=== PATIENT | female | born 1950 | race Caucasian/White ===

== ENCOUNTER 2017-08-06 08:30 | Observation (INO) | payer OTHER ==
[~2017-08-06] VITALS: Ht 160 cm; Wt 102.7 kg
[2017-08-06] VITALS (16 sets, daily range): BP systolic 90–153; BP diastolic 55–106; PULSE 79–104; TEMP 36.8–37.8; O2SAT 64–96; Ht 160 cm; Wt 102.7 kg
[~2017-08-06 08:30] MED LIST: ATRIN INH; DSY100 PO; HYDR-5688 PO; LVQ500 PO; MCRK20 PO; MGNO400 PO; NVLGIPEN SC; Ondansetron PO; PEDICHW50 PO; PRD20 PO; PRT40 PO; XNX5 PO; XPNIN INH
[2017-08-06] MEDS ORDERED: ESCI1TAB10 PO (09:07)
[2017-08-06] MEDS ORDERED: PRAV20TA PO (09:07)
[2017-08-06] MEDS ORDERED: VNTHFA/IN INH (09:07)
[2017-08-06] MEDS ORDERED: FURO-85 PO (09:10)
--- NOTE | 2017-08-06 09:31 | History and Physical ---
History & Physical Date of Service Aug 06, 2017. History & Physical 66-year-old female being evaluated for chronic obstructive pulmonary disease, shortness of breath and continuation of lung nodules. Patient has chronic scarring in her right upper and right lower lobe with previous history streptococcal viridans empyema in April 2015. Due the patient's increasing shortness of breath she has been referred for bronchoscopy with bronchial lavage for further evaluation. Active Problems 1. Acute bronchitis 2. Atelectasis 3. Chronic obstructive pulmonary disease 4. Cough 5. Empyema 6. Kidney disease 7. Loss of weight 8. PA (psoriatic arthritis) 9. Pleural effusion, right 10. Shortness of breath Surgical History 1. History of Appendectomy 2. History of Back Surgery 3. History of Hysterectomy 4. History of Oophorectomy 5. History of Sinus Surgery Family History 1. Family history of depression (Z81.8) 2. Family history of 3. Family history of cerebrovascular accident (CVA) (Z82.3) 4. Family history of Prostate disease 5. Family history of cerebrovascular accident (CVA) (Z82.3) Social History Former smoker Current Meds 1. PredniSONE 20 MG Oral Tablet; TAKE 3 TABLETS DAILY FOR 2 weeks, then 2.5 tablets 2. Ventolin HFA 108 (90 Base) MCG/ACT Inhalation Aerosol Solution; INHALE 2 PUFFS 3. ALPRAZolam 0.5 MG Oral Tablet; TAKE 1 TABLE2 TIMES DAILY; 4. ALPRAZolam 1 MG Oral Tablet; TAKE 1 TABLET AT BEDTIME; 5. Furosemide 20 MG Oral Tablet; TAKE 1 TABLET DAILY DIRECTED; 6. Lexapro 20 MG Oral Tablet; TAKE 1 TABLET DAILY; 7. Pravastatin Sodium 10 MG Oral Tablet; TAKE 1 TABLET DAILY DIRECTED; 8. PrednisoLONE Acetate 1 % Ophthalmic Suspension; INSTILL 1 DROP INTO BOTH 9. TraZODone HCl - 100 MG Oral Tablet; TAKE 1 TABLET AT BEDTIME; Allergies 1. Morphine Derivatives Immunizations Influenza --- Series1: 23-Apr-2016 PCV --- Series1: 15-Aug-2015 Vital Signs Recorded: 16Jul2017 01:52PM Patient Refused (Ht, wt, BP): patient didnt want weighed today Height: 5 ft Temperature: 97.9 F Respiration: 20 Heart Rate: 79 O2 Saturation: 96, RA Blood Pressure: 138 / 82, LUE, Sitting Physical Exam Constitutional General appearance: No acute distress, well appearing and well nourished. Eyes Conjunctiva and lids: No swelling, erythema or discharge. Pupils and irises: Equal, round and reactive to light. Ears, Nose, Mouth, and Throat External inspection of ears and nose: Normal. Otoscopic examination: Tympanic membranes translucent with normal light reflex. Canals patent without erythema. Oropharynx: Normal with no erythema, edema, exudate or lesions. Pulmonary Respiratory effort: No increased work of breathing or signs of respiratory distress. Auscultation of lungs: Clear to auscultation. Patient has good breath sounds bilaterally. There no wheeze, rale, or rhonchi noted. Cardiovascular Palpation of heart: Normal PMI, no thrills. Auscultation of heart: Normal rate and rhythm, normal S1 and S2, without murmurs. Examination of extremities for edema and/or varicosities: Normal. Abdomen Abdomen: Non-tender, no masses. Liver and spleen: No hepatomegaly or splenomegaly. Lymphatic Palpation of lymph nodes in neck: No lymphadenopathy. Musculoskeletal Gait and station: Normal. Digits and nails: Normal without clubbing or cyanosis. Inspection/palpation of joints, bones, and muscles: Normal. Skin Skin and subcutaneous tissue: Normal without rashes or lesions. Neurologic Cranial nerves: Cranial nerves 2-12 intact. Reflexes: 2+ and symmetric. Sensation: No sensory loss. Psychiatric Orientation to person, place, and time: Normal. Mood and affect: Normal.
--- NOTE | 2017-08-06 10:09 | History & Physical Bridge Note ---
H&P Re-Evaluation Bridge Note: I have examined the patient, reviewed the History & Physical and in the interval since the performance of the History & Physical I have noted the following changes of clinical significance: No changes noted
--- NOTE | 2017-08-06 10:10 | Pre Sedation Assessment ---
Pre Sedation Assessment General Date of Sedation: Aug 06, 2017. Vital Signs Past 12 Hours Date Time Temp Pulse Resp B/P (MAP) Pulse Ox O2 Delivery O2 Flow Rate FiO2 08/06/17 09:12 37.3 80 22 145/64 (91) 94 Room Air Review Cardiovascular: regular rate, rhythm, no edema, no gallop, no JVD, no murmur, normal peripheral pulses Lungs: chest non-tender, lungs clear, normal breath sounds, no respiratory distress, no accessory muscle use Pre-Sedation Airway Assessment Smoking Status: Former Smoker Hx of Sleep Apnea: No Hx of difficult intubation: No Short Thick Neck: Yes Thyro-mental Distance: < or =3 Finger Breadths Oral Cavity: WNL Mallampati Classification: Class III ASA Classification: Class II NPO Status Date of Last Intake of Fluids: Aug 06, 2017 Time of Last Intake of Fluids: 0630 Date of Last Intake of Solids: Aug 05, 2017 Time of Last Intake of Solids: 2100 Notes The planned sedation has been discussed with the patient. Informed Consent was obtained. I have identified the patient, determined the appropriateness of sedation and have assessed the patient immediately prior to the procedure. All medicine(s) and interventions are by my order.
[2017-08-06] MEDS ORDERED: NURSING VERBAL MED ORDER ONE (10:15)
[2017-08-06] MEDS ORDERED: DEXTROSE 5% 1000ML 1,000 ML IV SCH (10:30)
--- NOTE | 2017-08-06 10:54 | Bronchoscopy Procedure Note ---
Bronchoscopy Procedure Note Procedure: Bronchoscopy, conscious sedation, BAlL (RML & RUL) Consent: Obtained through the patient placed into the chart Pre-procedural diagnosis: Dyspnea Post-procedural diagnosis: Dyspnea Start time: 1015 End time: 1035 Total time: 20minutes Analgesia: 2% liquid lidocaine: Via nebulizer 4% gel lidocaine: Via right naris 2% liquid lidocaine: Via bronchoscopy Sedation: Versed IV: 3mg Fentanyl IV: 50g Procedure: The Melon #usemelon video bronchoscope was used for this procedure and passed down through the right naris Right naris/posterior naris/posterior oropharynx: Anatomically within normal limits, diffuse erythema Glottis: Anatomically within normal limits Vocal cords: Proper abduction and abduction, anatomically within normal limits Subglottis/trachea/Betina: Anatomically within normal limits Right bronchial tree: Right mainstem bronchus: Anatomically within normal limits Right upper lobe: Anatomically within normal limits Bronchus intermedius: Anatomically within normal limits Right middle lobe: Anatomically within normal limits Right lower lobe: Anatomically within normal limits Findings: No significant findings noted Left bronchial tree: Left mainstem bronchus: Anatomically within normal limits Left upper lobe: Anatomically within normal limits Lingula: Anatomically within normal limits Left lower lobe: Anatomically within normal limits Findings: No significant findings noted Bronchial alveolar lavage: RUL & RLL EBL: none Complications: Stridor with hypoxemia Follow-up: ASU
[2017-08-06] MEDS ORDERED: RACEPINEPHRINE 2.25% NEBU SOLN 0.5 ML VIAL INH ONE (11:55)
[2017-08-06] MEDS ORDERED: FENTANYL CITRATE INJ 50 MCG/1 ML 2 ML VIAL IV ONE (11:55)
[2017-08-06] MEDS ORDERED: LEVALBUTEROL 1.25MG/3ML NEB INH ONE (11:55)
[2017-08-06] MEDS ORDERED: MIDAZOLAM HCL 5 MG/ML 1 ML VIAL IV ONE (11:55)
[2017-08-06] MEDS ORDERED: LIDOCAINE HCL 2% LOCAL 50ML VIAL INSTIL ONE (11:55)
[2017-08-06] MEDS ORDERED: LIDOCAINE 4% INH SOLN 4 ML BTL INH ONE (11:55)
--- NOTE | 2017-08-06 12:19 | DIAGNOSTIC IMAGING REPORT ---
SINGLE VIEW CHEST CLINICAL HISTORY: Dyspnea. Status post bronchoscopy. FINDINGS: An AP, portable, upright chest radiograph is compared to study dated 08/13/2016. Correlation is made with chest CT dated 06/04/2017. The examination is degraded by portable technique and patient rotation. The heart is enlarged and there is atherosclerotic calcification of the thoracic aorta. The pulmonary vasculature is noncongested. Emphysema and chronic interstitial thickening are similar to previous. Findings suggest previous right-sided pulmonary resection. Opacities are also seen at the right apex. Consolidative change and pleural thickening is again seen at the right lung base. No large pleural effusion or pneumothorax is seen. The skeletal structures are osteopenic. There are healed bilateral rib fractures. IMPRESSION: 1. Cardiomegaly and emphysema. 2. Consolidative change is identified at the right lung base. 3. The left lung appears clear. 4. No pneumothorax is identified post procedure. Electronically signed by: Marcus Lund M.D. 08/06/2017 12:18 PM Dictated Date/Time: 08/06/2017 12:15 PM
--- NOTE | 2017-08-06 13:49 | Discharge Instructions ---
Discharge Instructions Date of Service Aug 06, 2017. Admission Reason for Admission: Pulmonary Nodule Discharge Discharge Diagnosis / Problem: Dyspnea Discharge Goals Goal(s): Diagnostic testing Activity Recommendations Activity Limitations: resume your previous activity . Instructions / Follow-Up Instructions / Follow-Up Follow-up in the [facility] Current Hospital Diet Patient's current hospital diet: Discharge Diet Recommended Diet: Regular Diet Procedures Procedures Performed: BRONCHOSCOPY bronchial lavage of the right upper lobe and right lower lobe Pending Studies Studies pending at discharge: no Medical Emergencies . Who to Call and When: Medical Emergencies: If at any time you feel your situation is an emergency, please call 911 immediately. . Non-Emergent Contact Non-Emergency issues call your: Materials Inspector . . "Provider Documentation" section prepared by Abram Rubio. . VTE Core Measure Inpt VTE Proph given/why not?: Treatment not indicated
[2017-08-06] MEDS ORDERED: POLYETHYLENE (MIRALAX) 17 GM PACK PO PRN (19:30)
[2017-08-06] MEDS ORDERED: MoRPHine SULFATE 2 MG/ML CARP IV PRN (19:30)
[2017-08-06] MEDS ORDERED: ALPRAZOLAM 0.5 MG TAB PO PRN (19:30)
[2017-08-06] MEDS ORDERED: ALUMINUM/MAGNESIUM/SIMETH (MAALOX MAX) 30 ML UDC PO PRN (19:30)
[2017-08-06] MEDS ORDERED: MAGNESIUM HYDROXIDE SUSP 30 ML UDC PO PRN (19:30)
[2017-08-06] MEDS ORDERED: ONDANSETRON INJ 2 MG/ML 2 ML VIAL IV PRN (19:30)
[2017-08-06] MEDS ORDERED: IV FLUIDS COMPLETED PRN ×2 (19:30→20:15)
--- NOTE | 2017-08-06 19:38 | Pulmonary Consultation ---
History General Date of Service: Aug 06, 2017. Stated Complaint: Dyspnea HPI The patient is a 66 year old female who presents to with complaints of Pulmonary Nodule. The patient's primary care provider is Jordan Vasquez M.D.. 66-year-old female being evaluated for chronic obstructive pulmonary disease, shortness of breath and continuation of lung nodules. Patient has chronic scarring in her right upper and right lower lobe with previous history streptococcal viridans empyema in April 2015. Due the patient's increasing shortness of breath she has been referred for bronchoscopy with bronchial lavage for further evaluation. She underwent bronchoscopy earlier today and notable started to desaturate after the bronchoscopy. She required 15L to maintain her SaO2 >88% at one time. She was also noted to have strider. After receiving racemix epi-nebulized and Xopenex she slowly recovered but throughout the day she never returned to her previous/baseline SaO2. She noted progressive SUBRAMANIAN over the last 3-4 months with no help from steroids and anti- biotics. Prior to admission she was on 20mg prednisone TID. She has also noted increased lower extremity edema over this time. Her work-up prior to admission had a CXR (WNL), Troponin and EKG (WNL) and ABG with an A-a gradient of 62. At the time of admission the patient denied CP, pleurisy, productive cough or hemoptysis. Active Problems 1. Acute bronchitis 2. Atelectasis 3. 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 Cough 5. Empyema 6. Chronic Kidney disease (Cr: 1.6-2.0 with EGFR: 25%) 7. Loss of weight 8. PA (psoriatic arthritis) 9. Pleural effusion, right 10. Shortness of breath Surgical History 1. History of Appendectomy 2. History of Back Surgery 3. History of Hysterectomy 4. History of Oophorectomy 5. History of Sinus Surgery Family History 1. Family history of depression (Z81.8) 2. Family history of 3. Family history of cerebrovascular accident (CVA) (Z82.3) 4. Family history of Prostate disease 5. Family history of cerebrovascular accident (CVA) (Z82.3) Social History Former smoker Current Meds 1. PredniSONE 20 MG Oral Tablet; TAKE 3 TABLETS DAILY FOR 2 weeks, then 2.5 tablets 2. Ventolin HFA 108 (90 Base) MCG/ACT Inhalation Aerosol Solution; INHALE 2 PUFFS 3. ALPRAZolam 0.5 MG Oral Tablet; TAKE 1 TABLE2 TIMES DAILY; 4. ALPRAZolam 1 MG Oral Tablet; TAKE 1 TABLET AT BEDTIME; 5. Furosemide 20 MG Oral Tablet; TAKE 1 TABLET DAILY DIRECTED; 6. Lexapro 20 MG Oral Tablet; TAKE 1 TABLET DAILY; 7. Pravastatin Sodium 10 MG Oral Tablet; TAKE 1 TABLET DAILY DIRECTED; 8. PrednisoLONE Acetate 1 % Ophthalmic Suspension; INSTILL 1 DROP INTO BOTH 9. TraZODone HCl - 100 MG Oral Tablet; TAKE 1 TABLET AT BEDTIME; Allergies 1. Morphine Derivatives Immunizations Influenza --- Series1: 23-Apr-2016 PCV --- Series1: 15-Aug-2015 Historian: patient, family, EMS Review of Systems Constitutional: reports: as stated in HPI Eyes: reports: no symptoms ENT: reports: no symptoms Cardiovascular: reports: as stated in HPI Respiratory: reports: as stated in HPI Gastrointestinal: reports: no symptoms Genitourinary - Female: reports: no symptoms Musculoskeletal: reports: no symptoms Integumentary: reports: no symptoms Neurologic: reports: no symptoms Psychiatric: reports: no symptoms Endocrine: no symptoms Hematologic / Lymphatic: no symptoms Allergic / Immunologic: no symptoms Past Medical History Past Medical History: please refer to HPI Past Surgical History: please refer to HPI Social History Hx Tobacco Use In Past Year?: No (quit 18yrs) Smoking Status: Former Smoker Alcohol: no current use Drug Use: none Marital status: single Housing status: lives alone Occupational Status: retired History of MDRO History of MDRO: Yes Type of MDRO: MRSA Allergies Coded Allergies: No Known Allergies (Unverified , 08/06/17) Current Medications Reported Home Medications Medications Dose Route/Sig Max Daily Dose Days Date Category Lasix (Furosemide) 20 Mg Tab 1 Tab PO DAILY 90 08/06/17 Reported Ventolin Hfa (Albuterol) 200 Puffs/83388 Mcg Aers 2-4 Puffs INH Q6H 08/06/17 Reported Pravachol (Pravastatin Sodium) 20 Mg Tab 20 Mg PO 08/06/17 Reported Lexapro (Escitalopram Oxalate) 20 Mg Tab 20 Mg PO DAILY 08/06/17 Reported Prednisone 20 Mg Tab 20 Mg PO DAILY 04/28/15 Rx Trazodone HCl 100 Mg Tab 100 Mg PO HS 04/28/15 Rx Alprazolam 0.5 Mg Tab 1 Mg PO HS PRN 04/28/15 Rx Physical Physical Exam Vital Signs: Date Time Temp Pulse Resp B/P (MAP) Pulse Ox O2 Delivery O2 Flow Rate FiO2 08/06/17 18:46 Nasal Cannula 2.0 08/06/17 18:17 37.6 87 21 153/106 (122) 95 Nasal Cannula 2.0 08/06/17 17:43 37.8 82 26 132/71 95 Nasal Cannula 2 08/06/17 17:15 84 26 148/78 94 Nasal Cannula 2 08/06/17 16:50 86 26 133/75 90 Room Air 08/06/17 16:11 92 26 133/84 96 Nasal Cannula 2 08/06/17 15:37 37.2 80 22 144/78 94 Nasal Cannula 2 08/06/17 15:10 37.2 104 22 90/55 92 Nasal Cannula 2 08/06/17 14:37 37.2 79 22 124/71 92 Nasal Cannula 2 08/06/17 14:06 82 24 96/64 92 Nasal Cannula 2 08/06/17 13:38 37.1 86 24 106/64 92 Nasal Cannula 4 08/06/17 13:12 36.9 84 22 90/63 64 Nasal Cannula 4 08/06/17 12:45 85 26 100/71 94 Nasal Cannula 6 08/06/17 12:30 37.1 86 26 92/65 94 Nasal Cannula 6 08/06/17 12:20 36.5 82 18 97/68 92 Mask 6 08/06/17 12:10 83 18 94/56 90 Mask 6 08/06/17 12:00 36.5 84 18 150/97 90 Mask 6 08/06/17 11:50 81 22 104/74 90 Mask 6 08/06/17 11:40 84 22 100/64 90 Mask 6 08/06/17 11:30 79 20 92/66 88 Mask 6 08/06/17 11:20 36.5 88 21 102/61 88 Mask 6 08/06/17 11:10 87 21 102/61 88 Mask 6 08/06/17 11:00 94 22 102/72 87 Mask 10 08/06/17 10:55 93 20 99/69 88 Mask 10 08/06/17 10:50 36.7 96 21 121/73 90 Mask 8 08/06/17 10:45 87 22 156/89 90 Mask 15 08/06/17 10:40 98 25 195/98 83 Mask 15 08/06/17 10:35 80 22 102/84 90 Mask 6 08/06/17 10:30 78 22 133/84 93 Mask 6 08/06/17 10:26 Oxymask 08/06/17 10:25 82 26 117/76 97 Mask 6 08/06/17 10:20 77 25 122/73 96 Mask 6 08/06/17 10:15 74 23 144/75 97 Mask 6 08/06/17 10:07 75 24 130/91 96 Mask 6 08/06/17 09:12 37.3 80 22 145/64 (91) 94 Room Air General Appearance: NO APPARENT DISTRESS Head: NORMOCEPHALIC, ATRAUMATIC Eyes: PERRLA, NO DISCHARGE, EOMI, SCLERAE NORMAL ENT: NORMAL EAR EXAM, sinus erythema Neck: NORMAL RANGE OF MOTION, NO TENDERNESS, TRACHEA MIDLINE, NO STRIDOR Respiratory: rales, rhonchi Cardiovasular: REGULAR RATE/RHYTHM, NORMAL S1S2, NO M/G/R, NO MURMUR Abdomen: NON TENDER, NORMAL BOWEL SOUNDS, NO REBOUND, NO MASSES, NO GUARDING Genitourinary - Female: EXTERNAL GENITALIA NORMAL Back: NORMAL INSPECTION, NO MIDLINE TENDERNESS, NO CVA TENDERNESS Upper Extremities: NO EDEMA, NO DEFORMITY Lower Extremities: edema Edema: Bilateral LE (2+) Pulses: radial (R) (1+), radial (L) (1+), dorsalis pedis (R) (1+), dorsalis pedis (L) (1+) Neuro: ALERT, ORIENTED x 3, NORMAL MOTOR EXAM, NORMAL SENSATION, NORMAL CEREBELLAR EXAM, NORMAL SPEECH, NORMAL GAIT Reflexes: biceps (R) (2+), bicpes (L) (2+) Babinski Testing: right (downgoing), left (downgoing) Psychiatric: NORMAL AFFECT, NO SUICIDAL IDEATION Diagnostics Labs Results Past 24 Hours Test 08/06/17 00:00 08/06/17 08:51 08/06/17 15:46 08/06/17 15:47 Range/Units Bedside Glucose 100 70-90 mg/dl Troponin I < 0.015 0-0.045 ng/ml Arterial Blood pH 7.38 7.35-7.45 Arterial Blood Partial Pressure CO2 47 35-46 mmHg Arterial Blood Partial Pressure O2 72 80-95 mm/Hg Arterial Blood HCO3 27 19-24 mmol/L Arterial Blood Oxygen Saturation 94.1 90-95 % Arterial Blood Base Excess 1.5 -9-1.8 mEq/L Arterial Blood Gas Delivery 2 L Deshaun Test POS POS Microbiology Results 08/06/17 Fungal Smear, Received Pending 08/06/17 Fungal Culture, Received Pending 08/06/17 Acid Fast Stain, Received Pending 08/06/17 Mycobacterial Culture, Received Pending 08/06/17 Gram Stain, Received Pending 08/06/17 Bronchoalveolar Lavage Culture, Received Pending 08/06/17 Fungal Smear, Received Pending 08/06/17 Fungal Culture, Received Pending 08/06/17 Acid Fast Stain, Received Pending 08/06/17 Mycobacterial Culture, Received Pending 08/06/17 Gram Stain, Received Pending 08/06/17 Bronchoalveolar Lavage Culture, Received Pending Diagnostic Radiology no acute change EKG Interpretation: NORMAL EKG Impression Assessment and Plan 66 y/o female with acute on chronic dyspnea and hypoxemia 1) Hypoxemia: Patient with 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 At this time I suggest we continue her current steroid dosing and 20mg prednisone TID. I also suggest we continue to maintain her SaO2 between 88 -92% with supplemental oxygen. Finally, I have consulted Dr. Salomón Schuler from cardiology to evaluated the patient for a possible right heart catheterization and shunt fraction evaluation to r/o diastolic heart failure. Patient will require a Two Steep prior to d/c for home O2. 2) Insomnia: Patient with a long history requiring Trazodone and Alprazolam. Will Continue to Monitor
--- NOTE | 2017-08-06 19:49 | History and Physical ---
History & Physical Date & Time of Service: Aug 06, 2017 at 19:30 Chief Complaint: Dyspnea Primary Care Physician: Jordan Vasquez M.D. History of Present Illness Source: patient 66 y/o F Hx COPD, HPL, Depression/anxiety, distant Hx of empyema. The pt is undergoing a dyspnea workup. A bronchoscopy was completed and following the procedure she remained persistently hypoxic. There was no clear etiology and R sided HF is suspected. For this reason she was assigned to telemetry and will likely undergo a R heart cath AM. She denies any current CP, N/V, diaphoresis, fevers. Past Medical/Surgical History 1) COPD 2) History of Empyema 3) HPL 4) Insomnia 5) Depression/anxiety Family History Noncontributory Social History Smoking Status: Former Smoker Multi-Drug Resistant Organisms History of MDRO: Yes Type of MDRO: MRSA Allergies Coded Allergies: No Known Allergies (Unverified , 08/06/17) Home Medications Scheduled Albuterol Hfa (Ventolin Hfa), 2-4 PUFFS INH Q6H Escitalopram Oxalate (Lexapro), 20 MG PO DAILY Furosemide (Lasix), 1 TAB PO DAILY Prednisone (Prednisone), 20 MG PO DAILY Trazodone HCl (Trazodone HCl), 100 MG PO HS Scheduled PRN Alprazolam (Alprazolam), 1 MG PO HS PRN for Sleep Miscellaneous Medications Pravastatin (Pravachol ), 20 MG PO Review of Systems Constitutional: No fever, No chills, No sweats Eyes: No worsening of vision ENT: No hearing loss, No unusual epistaxis, No nasal symptoms Respiratory: + shortness of breath, + dyspnea on exertion, + dyspnea at rest, No cough, No sputum Cardiovascular: No chest pain, No orthopnea Abdomen: No pain, No nausea, No vomiting Musculoskeletal: No joint pain Genitourinary - Female: No dysuria, No urinary frequency Neurologic: No memory loss, No paralysis, No weakness Psychiatric: No depression symptoms Endocrine: No fatigue Hematologic / Lymphatic: No abnormal bleeding/bruising Integumentary: No rash Allergic / Immunologic: No environmental allergies Physical Exam Vital Signs Date Time Temp Pulse Resp B/P (MAP) Pulse Ox O2 Delivery O2 Flow Rate FiO2 08/06/17 18:46 Nasal Cannula 2.0 08/06/17 18:17 37.6 87 21 153/106 (122) 95 Nasal Cannula 2.0 08/06/17 17:43 37.8 82 26 132/71 95 Nasal Cannula 2 08/06/17 17:15 84 26 148/78 94 Nasal Cannula 2 08/06/17 16:50 86 26 133/75 90 Room Air 08/06/17 16:11 92 26 133/84 96 Nasal Cannula 2 08/06/17 15:37 37.2 80 22 144/78 94 Nasal Cannula 2 08/06/17 15:10 37.2 104 22 90/55 92 Nasal Cannula 2 08/06/17 14:37 37.2 79 22 124/71 92 Nasal Cannula 2 08/06/17 14:06 82 24 96/64 92 Nasal Cannula 2 08/06/17 13:38 37.1 86 24 106/64 92 Nasal Cannula 4 08/06/17 13:12 36.9 84 22 90/63 64 Nasal Cannula 4 08/06/17 12:45 85 26 100/71 94 Nasal Cannula 6 08/06/17 12:30 37.1 86 26 92/65 94 Nasal Cannula 6 08/06/17 12:20 36.5 82 18 97/68 92 Mask 6 08/06/17 12:10 83 18 94/56 90 Mask 6 08/06/17 12:00 36.5 84 18 150/97 90 Mask 6 08/06/17 11:50 81 22 104/74 90 Mask 6 08/06/17 11:40 84 22 100/64 90 Mask 6 08/06/17 11:30 79 20 92/66 88 Mask 6 08/06/17 11:20 36.5 88 21 102/61 88 Mask 6 08/06/17 11:10 87 21 102/61 88 Mask 6 08/06/17 11:00 94 22 102/72 87 Mask 10 08/06/17 10:55 93 20 99/69 88 Mask 10 08/06/17 10:50 36.7 96 21 121/73 90 Mask 8 08/06/17 10:45 87 22 156/89 90 Mask 15 08/06/17 10:40 98 25 195/98 83 Mask 15 08/06/17 10:35 80 22 102/84 90 Mask 6 08/06/17 10:30 78 22 133/84 93 Mask 6 08/06/17 10:26 Oxymask 08/06/17 10:25 82 26 117/76 97 Mask 6 08/06/17 10:20 77 25 122/73 96 Mask 6 08/06/17 10:15 74 23 144/75 97 Mask 6 08/06/17 10:07 75 24 130/91 96 Mask 6 08/06/17 09:12 37.3 80 22 145/64 (91) 94 Room Air General Appearance: + pertinent finding (Overweight, middle-aged female, no distress - breathing is labored) Head: normocephalic Eyes: normal inspection ENT: normal ENT inspection, pharynx normal Neck: supple, + pertinent finding (JVD exam is limited - no obvious distention is seen) Respiratory/Chest: chest non-tender, + pertinent finding (Poor b/l air movement - no air into R base) Cardiovascular: regular rate, rhythm, no edema, no gallop Abdomen/GI: normal bowel sounds, non tender, soft Back: normal inspection, no CVA tenderness Extremities/Musculoskelatal: normal inspection, no calf tenderness, normal capillary refill Neurologic/Psych: estimator and drafter II-XII nml as tested, no motor/sensory deficits, alert Skin: + pertinent finding (generally erythematous) Diagnostics Laboratory Results Results Past 24 Hours Test 08/06/17 00:00 08/06/17 08:51 08/06/17 15:46 08/06/17 15:47 Range/Units Bedside Glucose 100 70-90 mg/dl Troponin I < 0.015 0-0.045 ng/ml Arterial Blood pH 7.38 7.35-7.45 Arterial Blood Partial Pressure CO2 47 35-46 mmHg Arterial Blood Partial Pressure O2 72 80-95 mm/Hg Arterial Blood HCO3 27 19-24 mmol/L Arterial Blood Oxygen Saturation 94.1 90-95 % Arterial Blood Base Excess 1.5 -9-1.8 mEq/L Arterial Blood Gas Delivery 2 L Deshaun Test POS POS Microbiology Results 08/06/17 Fungal Smear, Received Pending 08/06/17 Fungal Culture, Received Pending 08/06/17 Acid Fast Stain, Received Pending 08/06/17 Mycobacterial Culture, Received Pending 08/06/17 Gram Stain, Received Pending 08/06/17 Bronchoalveolar Lavage Culture, Received Pending 08/06/17 Fungal Smear, Received Pending 08/06/17 Fungal Culture, Received Pending 08/06/17 Acid Fast Stain, Received Pending 08/06/17 Mycobacterial Culture, Received Pending 08/06/17 Gram Stain, Received Pending 08/06/17 Bronchoalveolar Lavage Culture, Received Pending Diagnostic Radiology CXR: 1. Cardiomegaly and emphysema. 2. Consolidative change is identified at the right lung base. 3. The left lung appears clear. 4. No pneumothorax is identified post procedure EKG NSR - no strain pattern Impression Assessment and Plan 66 y/o F Hx COPD, HPL, Depression/anxiety, distant Hx of empyema. The pt is undergoing a dyspnea workup. A bronchoscopy was completed and following the procedure she remained persistently hypoxic. There was no clear etiology and R sided HF is suspected. For this reason she was assigned to telemetry and will likely undergo a R heart cath AM. She denies any current CP, N/V, diaphoresis, fevers. 1) Persistent hypoxia - known COPD history - HF or pulm HTN suspected - pt is scheduled for R heart cath - will monitor overnight - NPO after midnight Nebulizers and 02 protocol provided - she is on chrnic steroids - taper will be left to discretion of pulmonary following cath. AM Lasix dose held. 2) HPL - cont Statin 3) Depression/anxiety - cont scheduled meds Full code - heparin prophylaxis - total time for this admit including review of labs, meds, imaging - discussion with pt and Grade Checker Level of Care Telemetry Advanced Directives Existing Living Will: Yes Existing Power of Floral Artist: Yes Resuscitation Status FULL RESUSCITATION VTE Prophylaxis VTE Risk Assessment Done? Y/N: Yes Risk Level: Moderate Given or contraindicated: Treatment not indicated
[2017-08-06] MEDS ORDERED: TRAZODONE HCL 100 MG TAB PO SCH (21:00)
[2017-08-06] MEDS ORDERED: PRAVASTATIN SOD 20 MG TAB PO SCH (21:00)
[2017-08-07 00:01] VITALS: O2SAT 92
[2017-08-07] MEDS ORDERED: NURSING VERBAL MED ORDER ONE (01:15)
[2017-08-07 03:51] VITALS: BP 135/76; PULSE 87; TEMP 36.8; O2SAT 93
[2017-08-07] MEDS: ACETAMINOPHEN 325 MG TAB PO PRN ×3 (03:56→16:46)
[2017-08-07 07:32] VITALS: BP 140/71; PULSE 78; TEMP 36.6; O2SAT 93
[2017-08-07] MEDS ORDERED: MIDAZOLAM HCL 1 MG/ML 2ML VIAL ONE (07:48)
[2017-08-07] MEDS ORDERED: FENTANYL CITRATE INJ 50 MCG/1 ML 2 ML VIAL ONE (07:48)
[2017-08-07] MEDS ORDERED: ESCITALOPRAM OXALATE 20 MG TAB PO SCH (09:00)
[2017-08-07] MEDS ORDERED: PRAVASTATIN SOD 20 MG TAB PO SCH (09:00)
--- NOTE | 2017-08-07 09:20 | Post Sedation Assessment ---
Post Sedation Assessment General Date of Sedation Aug 07, 2017. Vital Signs: Vital Signs Past 12 Hours Date Time Temp Pulse Resp B/P (MAP) Pulse Ox O2 Delivery O2 Flow Rate FiO2 08/07/17 07:32 36.6 78 16 140/71 (94) 93 Nasal Cannula 2.0 08/07/17 04:00 Nasal Cannula 2.0 08/07/17 03:51 36.8 87 18 135/76 (95) 93 Nasal Cannula 2.0 08/07/17 00:01 92 Nasal Cannula 2.0 08/06/17 23:50 36.8 88 19 136/85 (102) 93 Nasal Cannula 2.0 Post Procedure Recovery Score Activity: (2) Moves 4 extremities * Respiration: (2) Deep breath/cough Circulation: (2) +/-20% PreAnes Value Consciousness: (2) Fully Awake Oxygen Saturation: (2) > 92% On Room Air Post Anesthesia Score: 10 Discharge Sedation Level of Care: Fast Track Phase II Post Sedation Plan On clinical assessment, the patient appears to have tolerated the sedation without complications. Patient is recovering as anticipated. Patient will continue to be monitored by nursing and may be discharged when sedation discharge criteria are met per below protocol. Upon Completions of procedure and additional 15 minutes continue every 5 minute vital signs and the P.A.R. score; then discharge to a Phase I or Fast Track to Phase II per the following guidelines: * Discharge Patient to appropriate Phase II area if PAR is 8 or greater or return to pre- procedure baseline. The post - procedure orders will be as directed. * If PAR score is less than 8 or not return to pre-procedure baseline then patient will follow Phase I monitoring till PAR is reached for Phase II. The Phase I may be done in procedure room or may call to secure a Phase I area. * If naloxone or flumazenil are used for reversal, hold in Phase I for an additional 60 -120 minutes before discharge to Phase II. Please call the Sedation Physician to re-evaluate and complete post-note for discharge to Phase II area. Do NOT discharge from procedure sedation or Phase 1 until post- sedation evaluation note is complete by procedure /sedation MD Sedation Discharge Instructions to be given to the patient at discharge to home.
--- NOTE | 2017-08-07 09:20 | Pre Sedation Assessment ---
Pre Sedation Assessment General Date of Sedation: Aug 07, 2017. Vital Signs Past 12 Hours Date Time Temp Pulse Resp B/P (MAP) Pulse Ox O2 Delivery O2 Flow Rate FiO2 08/07/17 07:32 36.6 78 16 140/71 (94) 93 Nasal Cannula 2.0 08/07/17 04:00 Nasal Cannula 2.0 08/07/17 03:51 36.8 87 18 135/76 (95) 93 Nasal Cannula 2.0 08/07/17 00:01 92 Nasal Cannula 2.0 08/06/17 23:50 36.8 88 19 136/85 (102) 93 Nasal Cannula 2.0 Review Cardiovascular: regular rate, rhythm, no edema, no murmur, normal peripheral pulses Lungs: chest non-tender, lungs clear, + wheezing Pre-Sedation Airway Assessment Smoking Status: Former Smoker Hx of Sleep Apnea: No Hx of difficult intubation: No Short Thick Neck: Yes Thyro-mental Distance: < or =3 Finger Breadths Oral Cavity: WNL Mallampati Classification: Class III ASA Classification: Class III NPO Status Date of Last Intake of Fluids: Aug 06, 2017 Time of Last Intake of Fluids: 2029 Date of Last Intake of Solids: Aug 06, 2017 Time of Last Intake of Solids: 2029 Procedure Planning Contraindications for Sedation: None Current Medications Reviewed: Yes Notes The planned sedation has been discussed with the patient. Informed Consent was obtained. I have identified the patient, determined the appropriateness of sedation and have assessed the patient immediately prior to the procedure. All medicine(s) and interventions are by my order.
--- NOTE | 2017-08-07 09:36 | Cardiac Catheterization ---
Procedure Note Procedure Date Aug 07, 2017. Pre-Procedure Diagnosis Cardiothoracic Symptom AUC Score 7 Post-Procedure Diagnosis Cardiothoracic Finding Procedure(s) Performed Right Heart Cath Designated [employer] Prescription Clerk(s) Jason Estimated Blood Loss 5 Medication(s) Fentanyl, Versed, Lidocaine 1% Summary of Findings RA 13 RV 36/13 PA 34/19 (26) PCW 17 PaSat 54% AoSat 87% on RA (ABG 7.37/47/56) Merrill CO/CI 3.4/1.7 Themo CO/CI 5.5/2.7 RV 57% RA 53% IVC 56% SVC 49% Qp/Qs 0.9 Summary: 1. Mildly elevated left and right sided filling pressures. 2. Borderline pulmonary hypertension. 3. Preserved cardiac output 4. No hemodynamically significant right to left shunt. Hemodynamics Rest Ao: -- Final Ao: -- LV: -- Recommendations Medical therapy and/or Counseling Specimens None Radiation Exposure (mGy) 153 Contrast (mls) 0 Fluids (cc crystalloids) 0 Drains None Anesthesia Moderate Procedural Complication(s) None Disposition PCU ACC Data Cardiac Status Clinical evaluation leading to the procedure CAD Presntation: Sx unlikely to be ischemic Anginal Classification: No symptoms Heart Failure: Yes, NYHA Class: CCS III Cardiogenic Shock w/in 24Hrs: No Cardiac Arrest w/in 24Hrs: No Imaging studies past 6 months: Yes Stress studies past 6 months: No Closure Device Percutaneous Entry Location: Antecubital vein Closure Device: none - manual hold Recommendations: Medical therapy and/or Counseling Intraprocedure Events Significant Dissection: No Perforation: No
[2017-08-07 09:41] LABS: ISTAT CREATININE 1.7 mg/dl (0.6-1.3); ISTAT IONIZED CALCIUM 1.23 mmol/l (1.12-1.32); ISTAT POTASSIUM 3.5 mEq/L (3.3-5.0)
[2017-08-07 10:00] VITALS: BP 117/67; PULSE 69; TEMP 36.9; O2SAT 98
--- NOTE | 2017-08-07 11:17 | Pulmonology Progress Note ---
Pulmonary Progress Note Date of Service Aug 07, 2017. Attending Dr. Rubio Subjective 66-year-old female admitted with progressive dyspnea status post bronchoscopy. Patient notes she has had progressive dyspnea over the last 3-4 months associated with lower extremity edema but still denies chest pain, pleurisy or unintentional weight loss. Objective Patient currently doing well able sit up in bed showing no signs of respiratory insufficiency on 2 liters nasal cannula. Vital signs: Stable on 2 liters Respiratory: Rhonchi noted on the right with some mild expiratory wheezing Cardiac: S1-S2 distant heart sounds Extremities: 1+ pitting edema bilateral lower extremities Assessment & Plan 66-year-old female admitted with progressive dyspnea: 1. ACOS: Patient does have underlying chronic obstructive Respiratory disease with reversible component. She should continue on her current regimen and we will slowly titrate her prednisone as an outpatient. 2. Right heart catheterization: Patient had a right heart catheterization performed showing an elevated wedge pressure 17 with a trans diastolic pulmonary pressure of only 2. Also patient had a mildly decreased Qp/Qs, PaSat and AoSat. This study suggests the patient has underlying pulmonary hypertension from group 2 and group 3 pulmonary hypertension. This is both cardiac and pulmonary in origin. With this we need to be aggressive with her diastolic dysfunction as well as her underlying ACOS. 3. Hypoxia: Patient is to undergo 2 step and then be discharged home on oxygen support. Follow-up: Patient can follow up with myself and/or Darian Caldera within the next 7-10 days. Data Medications: Current Inpatient Medications Medications (Trade) Dose Ordered Sig/Derek Route Start Time Stop Time Status Last Admin Dose Admin Miscellaneous (Iv Fluids Completed) 1 ea PRN PRN N/A 08/06/17 19:30 08/06/18 19:29 Alprazolam (Xanax Tab) 1 mg HS PRN PO 08/06/17 19:30 09/05/17 19:29 08/06/17 22:28 1 MG Escitalopram Oxalate (Lexapro Tab) 20 mg DAILY PO 08/07/17 09:00 09/06/17 08:59 08/07/17 10:25 20 MG Prednisone (PredniSONE TAB) 20 mg DAILY PO 08/07/17 09:00 09/06/17 08:59 08/07/17 10:25 20 MG Trazodone HCl (Desyrel Tab) 100 mg HS PO 08/06/17 21:00 09/05/17 20:59 08/06/17 22:28 100 MG Acetaminophen (Tylenol Tab) 650 mg Q4H PRN PO 08/06/17 19:30 09/05/17 19:29 08/07/17 09:54 650 MG Al Hydrox/Mg Hydrox/Simethicone (Maalox Max Susp) 15 ml Q4H PRN PO 08/06/17 19:30 09/05/17 19:29 Magnesium Hydroxide (Milk Of Magnesia Susp) 30 ml Q12H PRN PO 08/06/17 19:30 09/05/17 19:29 Ondansetron HCl (Zofran Inj) 4 mg Q6H PRN IV 08/06/17 19:30 09/05/17 19:29 Morphine Sulfate (MoRPHine SULFATE INJ) 2 mg Q30M PRN IV 08/06/17 19:30 08/20/17 19:29 Polyethylene (Miralax Powder Packet) 17 gm DAILY PRN PO 08/06/17 19:30 09/05/17 19:29 Pravastatin Sodium (Pravachol Tab) 20 mg QAM PO 08/07/17 09:00 09/06/17 08:59 08/07/17 10:25 20 MG Vital Signs: Date Time Temp Pulse Resp B/P (MAP) Pulse Ox O2 Delivery O2 Flow Rate FiO2 08/07/17 10:00 36.9 69 17 117/67 (84) 98 Nasal Cannula 2.0 08/07/17 09:45 Nasal Cannula 2.0 08/07/17 09:30 85 16 136/88 (104) 94 Room Air 08/07/17 09:25 Room Air 08/07/17 09:20 Room Air 08/07/17 09:15 89 16 137/92 (107) 95 Room Air 08/07/17 07:32 36.6 78 16 140/71 (94) 93 Nasal Cannula 2.0 08/07/17 04:00 Nasal Cannula 2.0 08/07/17 03:51 36.8 87 18 135/76 (95) 93 Nasal Cannula 2.0 08/07/17 00:01 92 Nasal Cannula 2.0 08/06/17 23:50 36.8 88 19 136/85 (102) 93 Nasal Cannula 2.0 08/06/17 20:00 92 Nasal Cannula 2.0 08/06/17 18:46 Nasal Cannula 2.0 08/06/17 18:17 37.6 87 21 153/106 (122) 95 Nasal Cannula 2.0 08/06/17 17:43 37.8 82 26 132/71 95 Nasal Cannula 2 08/06/17 17:15 84 26 148/78 94 Nasal Cannula 2 08/06/17 16:50 86 26 133/75 90 Room Air 08/06/17 16:11 92 26 133/84 96 Nasal Cannula 2 08/06/17 15:37 37.2 80 22 144/78 94 Nasal Cannula 2 08/06/17 15:10 37.2 104 22 90/55 92 Nasal Cannula 2 08/06/17 14:37 37.2 79 22 124/71 92 Nasal Cannula 2 08/06/17 14:06 82 24 96/64 92 Nasal Cannula 2 08/06/17 13:38 37.1 86 24 106/64 92 Nasal Cannula 4 08/06/17 13:12 36.9 84 22 90/63 64 Nasal Cannula 4 08/06/17 12:45 85 26 100/71 94 Nasal Cannula 6 08/06/17 12:30 37.1 86 26 92/65 94 Nasal Cannula 6 08/06/17 12:20 36.5 82 18 97/68 92 Mask 6 08/06/17 12:10 83 18 94/56 90 Mask 6 08/06/17 12:00 36.5 84 18 150/97 90 Mask 6 08/06/17 11:50 81 22 104/74 90 Mask 6 08/06/17 11:40 84 22 100/64 90 Mask 6 08/06/17 11:30 79 20 92/66 88 Mask 6 08/06/17 11:20 36.5 88 21 102/61 88 Mask 6 08/06/17 11:10 87 21 102/61 88 Mask 6 Laboratory Results: Last 24 Hours Test 08/06/17 15:46 08/06/17 15:47 08/07/17 07:00 08/07/17 08:41 Troponin I < 0.015 ng/ml Arterial Blood pH 7.38 Arterial Blood Partial Pressure CO2 47 mmHg Arterial Blood Partial Pressure O2 72 mm/Hg Arterial Blood HCO3 27 mmol/L Arterial Blood Oxygen Saturation 94.1 % Arterial Blood Base Excess 1.5 mEq/L Arterial Blood Gas Delivery 2 L Deshaun Test POS Pro-B-Type Natriuretic Peptide 85 pg/ml Bedside Blood Gas pH (LAB) 7.35 Bedside Blood Gas pCO2 (LAB) 53 mmHg Bedside Blood Gas pO2 (LAB) < 32 mmHg Bedside Blood Gas HCO3 (LAB) 30 meq/L Bedside Blood Gas Total CO2 31 mEq/l Bedside Blood Gas Base Excess (LAB) 4.0 meq/L Bedside Blood Gas O2 Saturation 54.0 % Test 08/07/17 08:54 08/07/17 08:57 08/07/17 08:58 08/07/17 09:02 Bedside Hemoglobin 15.6 g/dl Bedside Hematocrit 46 % Bedside Sodium 143 mEq/L Bedside Potassium 3.5 mEq/L Bedside Chloride 104 mEq/L Bedside Total CO2 29 mEq/l Anion Gap 14.0 mmol/L Bedside Blood Urea Nitrogen 23 mg/dl Bedside Creatinine 1.7 mg/dl Bedside Glucose (other) 121 mg/dl Bedside Ionized Calcium (Noemí) 1.23 mmol/l Bedside Blood Gas pH (LAB) 7.37 7.38 7.33 Bedside Blood Gas pCO2 (LAB) 54 mmHg 53 mmHg 56 mmHg Bedside Blood Gas pO2 (LAB) < 32 mmHg < 32 mmHg < 32 mmHg Bedside Blood Gas HCO3 (LAB) 31 meq/L 31 meq/L 29 meq/L Bedside Blood Gas Total CO2 33 mEq/l 33 mEq/l 31 mEq/l Bedside Blood Gas Base Excess (LAB) 6.0 meq/L 6.0 meq/L 3.0 meq/L Bedside Blood Gas O2 Saturation 53.0 % 57.0 % 49.0 % Test 08/07/17 09:04 08/07/17 09:17 Bedside Blood Gas pH (LAB) 7.35 7.37 Bedside Blood Gas pCO2 (LAB) 52 mmHg 48 mmHg Bedside Blood Gas pO2 (LAB) < 32 mmHg 56 mmHg Bedside Blood Gas HCO3 (LAB) 29 meq/L 28 meq/L Bedside Blood Gas Total CO2 30 mEq/l 29 mEq/l Bedside Blood Gas Base Excess (LAB) 3.0 meq/L 2.0 meq/L Bedside Blood Gas O2 Saturation 56.0 % 87.0 %
[2017-08-07 12:06] VITALS: BP 114/63; PULSE 79; TEMP 36.7; O2SAT 97
--- NOTE | 2017-08-07 16:10 | Medical Student: [facility] ---
Med Student Progress Note Date of Service Aug 07, 2017. Subjective Pt evaluation today including: conversation w/ patient, physical exam PO Intake: Adquate Voiding: no voiding problems Ms. Zuniga is a 66-year-old female with a history of COPD, HLD, and insomnia who presents to [facility] for bronchoscopy to evaluate chronic dyspnea. Pt reports increasing SOB over the past few months. In addition to asthma, she has history of empyema that has left chronic "changes" in the lung. She is on prednisone and albuterol inhaler/neb at home. She reports that the bronchoscopy went well. She subsequently had a right heart catherization to evaluate for pulmonary HTN. Since the procedure, she has been hypoxic and requires 2L NC. She otherwise feels well and has no complaints. Review of Systems Constitutional: No fever, No chills Respiratory: + shortness of breath, No cough Cardiac: No chest pain, No edema Abdomen: No nausea, No diarrhea, No constipation Female : No dysuria Objective Vital Signs Date Time Temp Pulse Resp B/P (MAP) Pulse Ox O2 Delivery O2 Flow Rate FiO2 08/07/17 12:06 36.7 79 20 114/63 (80) 97 Nasal Cannula 2.0 08/07/17 12:02 Nasal Cannula 2.0 08/07/17 10:00 36.9 69 17 117/67 (84) 98 Nasal Cannula 2.0 08/07/17 09:45 Nasal Cannula 2.0 08/07/17 09:30 85 16 136/88 (104) 94 Room Air 08/07/17 09:25 Room Air 08/07/17 09:20 Room Air 08/07/17 09:15 89 16 137/92 (107) 95 Room Air 08/07/17 07:32 36.6 78 16 140/71 (94) 93 Nasal Cannula 2.0 08/07/17 04:00 Nasal Cannula 2.0 08/07/17 03:51 36.8 87 18 135/76 (95) 93 Nasal Cannula 2.0 08/07/17 00:01 92 Nasal Cannula 2.0 08/06/17 23:50 36.8 88 19 136/85 (102) 93 Nasal Cannula 2.0 08/06/17 20:00 92 Nasal Cannula 2.0 08/06/17 18:46 Nasal Cannula 2.0 08/06/17 18:17 37.6 87 21 153/106 (122) 95 Nasal Cannula 2.0 08/06/17 17:43 37.8 82 26 132/71 95 Nasal Cannula 2 08/06/17 17:15 84 26 148/78 94 Nasal Cannula 2 08/06/17 16:50 86 26 133/75 90 Room Air 08/06/17 16:11 92 26 133/84 96 Nasal Cannula 2 Physical Exam General Appearance: WD/WN, no apparent distress ENT: hearing grossly normal, TMs normal Respiratory/Chest: normal breath sounds, no respiratory distress Cardiovascular: regular rate, rhythm, no edema, no gallop, no murmur Abdomen: normal bowel sounds, non tender, soft Extremities: normal inspection, no pedal edema, no calf tenderness Laboratory Results Last 24 Hours Test 08/07/17 07:00 08/07/17 08:41 08/07/17 08:54 08/07/17 08:57 Pro-B-Type Natriuretic Peptide 85 pg/ml Bedside Blood Gas pH (LAB) 7.35 7.37 Bedside Blood Gas pCO2 (LAB) 53 mmHg 54 mmHg Bedside Blood Gas pO2 (LAB) < 32 mmHg < 32 mmHg Bedside Blood Gas HCO3 (LAB) 30 meq/L 31 meq/L Bedside Blood Gas Total CO2 31 mEq/l 33 mEq/l Bedside Blood Gas Base Excess (LAB) 4.0 meq/L 6.0 meq/L Bedside Blood Gas O2 Saturation 54.0 % 53.0 % Bedside Hemoglobin 15.6 g/dl Bedside Hematocrit 46 % Bedside Sodium 143 mEq/L Bedside Potassium 3.5 mEq/L Bedside Chloride 104 mEq/L Bedside Total CO2 29 mEq/l Anion Gap 14.0 mmol/L Bedside Blood Urea Nitrogen 23 mg/dl Bedside Creatinine 1.7 mg/dl Bedside Glucose (other) 121 mg/dl Bedside Ionized Calcium (Noemí) 1.23 mmol/l Test 08/07/17 08:58 08/07/17 09:02 08/07/17 09:04 08/07/17 09:17 Bedside Blood Gas pH (LAB) 7.38 7.33 7.35 7.37 Bedside Blood Gas pCO2 (LAB) 53 mmHg 56 mmHg 52 mmHg 48 mmHg Bedside Blood Gas pO2 (LAB) < 32 mmHg < 32 mmHg < 32 mmHg 56 mmHg Bedside Blood Gas HCO3 (LAB) 31 meq/L 29 meq/L 29 meq/L 28 meq/L Bedside Blood Gas Total CO2 33 mEq/l 31 mEq/l 30 mEq/l 29 mEq/l Bedside Blood Gas Base Excess (LAB) 6.0 meq/L 3.0 meq/L 3.0 meq/L 2.0 meq/L Bedside Blood Gas O2 Saturation 57.0 % 49.0 % 56.0 % 87.0 % Assessment and Plan Assessment and Plan: Ms. Zuniga is a 66-year-old female with a history of Asthma, HLD, and insomnia who presents to [facility] for evaluation of chronic dyspnea. DYSPNEA WORK UP Bronchoscopy - No clear pulmonary abnormalities revealed to explain chronic dyspnea. Right heart catheterization showing " Mildly elevated left and right sided filling pressures, Borderline pulmonary hypertension, Preserved cardiac output, No hemodynamically significant right to left shunt." Pulmonology reports that both the heart and lungs are contributing to pulmonary hypertension in the pt, and that we will need to be aggressive in treating diastolic dysfunction and asthma. Plan is to have her follow-up with pulmonology as an outpatient. Until then, continue supplemental oxygen at home. ASTHMA Continue albuterol. HDL Continue statin. INSOMNIA Continue alprazolam and trazodone. DVT PPX Continue heparin. Ambulate as tolerated. CP No chest pain today. DEPRESSION/ANXIETY Continue escitalopram.
[2017-08-07 16:48] VITALS: BP 114/63; PULSE 79; TEMP 36.7; O2SAT 97
--- NOTE | 2017-08-08 04:25 | CARDIOLOGY CONSULTATION ---
DATE OF CONSULTATION: 08/07/2017 CONSULTATION REQUESTED BY: Dr. Pozo REASON FOR CONSULTATION: Evaluation for possible pulmonary hypertension in the setting of persistent dyspnea plus hypoxemia. HISTORY OF PRESENT ILLNESS: Ms. Zuniga is a very pleasant 66-year-old woman with a history of a prior empyema in 2014, status post VATS, prior lung nodule, asthma/COPD overlap syndrome, morbid obesity, and chronic renal insufficiency who was admitted from the bronchoscopy suite in the setting of hypoxia. The patient is followed by the [facility] pulmonary group as an outpatient and has been worked up for worsening dyspnea on exertion over the last several months. Her workup has included unremarkable CT scan/VQ scan and an echocardiogram which showed preserved LV function, EF 55%, normal RV size and function and no significant valvular pathology and normal estimated RA and PA pressures. The patient was admitted yesterday after he underwent bronchoscopy for further evaluation of chronic dyspnea with post-procedure course complicated by persistent hypoxia. Since being admitted, patient states that her breathing has returned to her recent baseline. She denies any prior history of cardiac issues. Denies any chest pain, palpitations. Does endorse worsening lower extremity edema over the last several months and has been intermittently taking Lasix. PAST MEDICAL HISTORY: 1. Asthma/COPD overlap syndrome, FEV1 of 41%. 2. History of empyema growing alpha strep/strep Viridans back in 2014, status post VATS, prior lung nodule, benign per her biopsy with bronchoscopy in 2014. 3. Psoriatic arthritis. 4. Chronic renal insufficiency. PAST SURGICAL HISTORY: Status post appendectomy, back surgery, hysterectomy and oophorectomy and prior sinus surgery. FAMILY HISTORY: No family history of premature coronary disease or sudden cardiac . SOCIAL HISTORY: She is and previously worked in [employer] industry. She is a former smoker, states she quit 18 years ago. HOME MEDICATIONS: Include prednisone, Ventolin inhaler, alprazolam, furosemide 20 mg intermittently, Lexapro, pravastatin 10, prednisolone ophthalmologic suspension and trazodone. ALLERGIES: MORPHINE. REVIEW OF SYSTEMS: A 10-point review of systems completed and otherwise negative or listed in HPI. PHYSICAL EXAMINATION: VITAL SIGNS: Temperature 36.9, pulse is 69, blood pressure 117/67 and she is satting 98% on 2 liters. GENERAL: The patient appears comfortable in no acute distress. HEENT: Sclerae are anicteric. Oropharynx clear. Mucous membranes are moist. NECK: Supple. She has no visual jugular venous distention. LUNGS: Clear with prolonged expiratory phase. No clear crackles. CARDIAC: She has distant heart sounds. No appreciable murmur. She is regular. ABDOMEN: Soft, obese, nontender. EXTREMITIES: Warm. She has trace lower extremity edema to the ankle. SKIN: Shows no rashes or lesions. NEUROLOGIC: Nonfocal. PSYCHIATRIC: Alert and appropriate. LABORATORY DATA: Blood gas yesterday 7.38, 47, 72 on 2 liters of oxygen. Sodium 143, potassium 3.5, creatinine of 1.7. Troponin was negative. Chest x-ray showed cardiomegaly and emphysema with consolidative change in the right lung base. Right heart catheterization performed this morning showed RA pressure of 13, RV pressure of 36/13, PA pressure of 34/19 with a mean of 26 and wedge pressures of 17. Her arterial sat was 87% on room air, PA sat was 54%, calculated cardiac output was 3.4 and index was 1.7, thermo cardiac output was 5.5, index of 2.7. A ____ was performed and her Qp/Qs ratio was 0.9. IMPRESSION AND PLAN: 1. Hypoxia/progressive dyspnea. 2. Asthma/chronic obstructive pulmonary disease overlap syndrome. 3. Heart failure with preserved ejection fraction. 4. Borderline pulmonary hypertension. 5. Psoriatic arthritis. 6. Chronic kidney disease. Reviewed results of right heart catheterization from earlier today with the patient. Findings consistent with mildly elevated left and right-sided filling pressures most consistent with heart failure with preserved ejection fraction. She does have borderline pulmonary hypertension which I suspect is secondary to her underlying lung disease as well as again elevated left-sided filling pressures. I feel that likely only modest contributions of heart failure to patient's overall symptoms; however, feel would benefit from increased diuretics. The patient was taking Lasix 20 mg intermittently, we would plan to send home on 40 mg daily with close BMP follow up in the setting of her renal insufficiency. Otherwise, blood pressures have been well controlled with no evidence to suggest cardiac ischemia or arrhythmias and no additional changes to her current home regimen. The patient can follow up with cardiology as needed. Thank you for consultation.
--- NOTE | 2017-08-08 09:01 | Discharge Summary ---
Discharge Summary Date of Service Aug 07, 2017. Discharge Summary Admission Date: Aug 06, 2017 at 17:34 Discharge Date: Aug 07, 2017 Discharge Disposition: Home Principal Diagnosis: Pulmonary hypertension Problems/Secondary Diagnoses: Dyspnea Acute hypoxia ACOS h/o empyema with scarring Procedures: Bronchoscopy Right heart catheterization Consultations: Pulmonology Cardiology Medication Reconciliation Continued Medications: Albuterol Hfa (Ventolin Hfa) 200 Puffs/51239 Mcg Aers 2-4 PUFFS INH Q6H, #1 INHALER Alprazolam (Alprazolam) 0.5 Mg Tab 1 MG PO HS PRN for Sleep, #15 TAB Escitalopram Oxalate (Lexapro) 20 Mg Tab 20 MG PO DAILY, TAB Furosemide (Lasix) 20 Mg Tab 1 TAB PO DAILY for 90 Days, #90 TAB 1 Refill Pravastatin (Pravachol ) 20 Mg Tab 20 MG PO, TAB Prednisone (Prednisone) 20 Mg Tab 20 MG PO DAILY, #15 TAB Trazodone HCl (Trazodone HCl) 100 Mg Tab 100 MG PO HS, #15 TAB Discharge Exam Patient feeling well, completed two step, needs 1 L on exertion. Will follow up with pulmonary in [place] Review of Systems: Constitutional: No fever, No chills, No sweats, No weight loss, No weakness , No fatigue, No problem reported Eyes: No worsening of vision, No eye pain, No redness, No discharge, No diplopia, No problem reported ENT: No hearing loss, No unusual epistaxis, No nasal symptoms, No sore throat, No tinnitus, No dental problems, No trouble swallowing, No problem reported Respiratory: + cough, + dyspnea on exertion, No sputum, No wheezing, No shortness of breath, No dyspnea at rest, No hemoptysis, No problem reported Cardiovascular: No chest pain, No orthopnea, No PND, No edema, No claudication, No palpitations, No problem reported Abdomen: No pain, No nausea, No vomiting, No diarrhea, No constipation, No GI bleeding, No problem reported Musculoskeletal: No joint pain, No muscle pain, No swelling, No calf pain, No problem reported Genitourinary - Female: No dysuria, No urinary frequency, No urinary urgency , No urinary incontinence, No urinary retention, No hematuria Neurologic: No memory loss, No paralysis, No weakness, No numbness/tingling , No vertigo, No balance problems, No problem reported Psychiatric: No depression symptoms, No anhedonism, No anxiety, No insomnia , No substance abuse, No problem reported Endocrine: No fatigue, No excessive thirst, No excessive urination, No problem reported Hematologic / Lymphatic: No abnormal bleeding/bruising, No clotting problems , No swollen lymph nodes, No night sweats, No problem reported Integumentary: No rash, No itch, No new/changing skin lesions, No color change, No bleeding, No problem reported Physical Exam: General Appearance: no apparent distress, + obese Eyes: normal inspection, EOMI, sclerae normal ENT: normal ENT inspection, hearing grossly normal, pharynx normal Neck: supple, no adenopathy, no JVD, trachea midline Respiratory/Chest: chest non-tender, lungs clear, normal breath sounds, no respiratory distress, no accessory muscle use Cardiovascular: regular rate, rhythm, no edema, no gallop, no JVD, no murmur , normal peripheral pulses Abdomen / GI: normal bowel sounds, non tender, soft, no organomegaly Extremities: normal inspection, no calf tenderness, normal capillary refill , no pedal edema, normal range of motion, pelvis stable 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 The pt is undergoing a dyspnea workup. A bronchoscopy was completed and following the procedure she remained persistently hypoxic. There was no clear etiology and R sided HF is suspected. For this reason she was assigned to telemetry and will likely undergo a R heart cath AM. She denies any current CP, N/V, diaphoresis, fevers. - Acute hypoxia and dyspnea: likely from combination of pulmonary hypertension, diastolic HF, ACOS d/c on supplemental oxygen - Pulmonary HTN: right heart catheterization performed on 08/07, mild pulmonary HTN, no intracardiac shunt - ACOS: continue inhalers, Prednisone bronchoscopy performed 08/06, no acute findings - Chronic diastolic HF: continue Lasix, examines euvolemic will follow up with pulmonology in [place] Total Time Spent: Less than 30 minutes This includes examination of the patient, discharge planning, medication reconciliation, and communication with other providers. Discharge Instructions Please refer to the electronic Patient Visit Report (Discharge Instructions) for additional information. Follow-Up Darian Frey in [place] Additional Copies To Jordan Vasquez M.D.; Abram Rubio MD
== END 2017-08-07 17:26 | disposition home health service (06) ==
LOC: C.ACU 08:30 → C.2E 17:34 → ENRESERV 17:41
PROVIDERS: ADMIT Internal Medicine; ATTEND Internal Medicine
DX: I27.20 Pulmonary hypertension, unspecified (principal); R06.02 Shortness of breath; I50.32 Chronic diastolic (congestive) heart failure; J44.9 Chronic obstructive pulmonary disease, unspecified; I51.7 Cardiomegaly; E78.5 Hyperlipidemia, unspecified; R91.8 Other nonspecific abnormal finding of lung field; L40.50 Arthropathic psoriasis, unspecified; N18.9 Chronic kidney disease, unspecified; F41.9 Anxiety disorder, unspecified; F32.9 Major depressive disorder, single episode, unspecified; Z90.710 Acquired absence of both cervix and uterus; Z81.8 Family history of other mental and behavioral disorders; Z82.3 Family history of stroke; Z87.891 Personal history of nicotine dependence; Z86.14 Personal history of Methicillin resistant Staphylococcus aureus infection; Z90.89 Acquired absence of other organs